=== PATIENT | male | born 1960 | race Caucasian/White ===

== ENCOUNTER → 2024-06-28 | Outpatient (CLI) | payer SELFPAY, OTHER ==
--- NOTE | 2024-06-28 18:55 | CT_ITS ---
PROCEDURE: SINUS/FACIAL BONE REASON FOR EXAM: CHRONIC SINUSITIS TECHNIQUE: CT of the paranasal sinuses without contrast. Coronal and Sagittal reconstruction series were provided. One or more dose reduction techniques were used (e.g., Automated exposure control, adjustment of the mA and/or kV according to patient size, use of iterative reconstruction technique). COMPARISON: None available FINDINGS: The paranasal sinuses appear well formed without wall thickening or sclerosis. Fairly mild mucoperiosteal thickening at the inferior frontal sinuses. Some focal soft tissue opacification of the right frontoethmoidal recess. The left side appears patent. Some mild mucosal thickening in left-sided ethmoid air cells. Fairly mild mucoperiosteal thickening bilateral sphenoid sinuses at the areas of the sphenoethmoid recesses with some focal opacification. Mild bilateral maxillary sinus mucoperiosteal thickening and bilateral ostium soft tissue opacification. No air-fluid levels. Mild leftward deviation of the nasal septum. No nasal spur. The turbinates appear within limits. The orbits appear within limits. Infratemporal fossa fat appears preserved. Bilateral pterygopalatine foramen appear symmetric. Bilateral fossa of Rosenmuller appear symmetric. TMJs appear normally located. Small intra-articular osseous body on the left axial 101 and coronal 97. [place] artifact from dental amalgam. No dental periapical lucency identified. The mastoids, middle ears and internal auditory canals appear within limits. Mild appearing bilateral carotid calcific plaque formation. Multilevel cervical spondylosis/discogenic change with uncovertebral hypertrophic change and posterior disc osteophyte complex results in central and [id number]-right foraminal narrowing C5-6. Bilateral foraminal narrowing at C3-4. CT/Sinus/Facial Bone IMPRESSION: Mild paranasal sinus disease as detailed above. No air-fluid levels. Note of partially imaged cervical spondylosis/discogenic change as above. Reading Location: [id number]
== END | disposition home or self-care (01) ==
LOC: CT 18:54
PROVIDERS: PCP Family Medicine; Referring Provider Otolaryngology; Visit Provider Otolaryngology
DX: J32.8 Other chronic sinusitis (principal)
CPT/HCPCS: 70486